=== PATIENT | male | born 1970 | race Caucasian/White ===

== ENCOUNTER 2021-07-01 03:16 | Inpatient (IN) | payer OTHER ==
[2021-07-01] MEDS ORDERED: Promethazine HCl 25 MG/ML VIAL IM PRN (03:22)
[2021-07-01] MEDS ORDERED: hydrALAZINE 20 MG/ML VIAL SLOW IVP PRN (03:22)
[2021-07-01] MEDS ORDERED: Ondansetron PF 4 MG/2 ML Vial IVP PRN (03:22)
[2021-07-01 03:32] VITALS: BMI 22.7
[2021-07-01] MEDS: Morphine 4 MG/ML VIAL SLOW IVP PRN ×2 (04:06→08:12)
[2021-07-01] MEDS: Dexamethasone 4 mg/ml Vial SLOW IVP SCH ×4 (04:15→21:53)
[2021-07-01] MEDS: Clindamycin/D5W 600 MG in Premix Bag 1 BAG IVPB SCH ×3 (04:15→21:52)
[2021-07-01 05:53] LABS: #Lymphocytes 1.2 thou/uL (1.20-3.40); #Monocytes 1.1 thou/uL (0.11-0.59); #Neutrophils 15.5 thou/uL (1.40-6.50); %Basophils 0.1 % (0.0-1.0); %Eosinophils 0.1 % (0.0-10.0); %Lymphocytes 6.9 % (21.0-51.0); %Monocytes 6.1 % (0.0-10.0); %Neutrophils 86.9 % (42.0-75.0); Hemoglobin 15.2 g/dL (14.0-18.0); Mean Corpuscular Volume 88.1 fL (78.0-98.0); Mean Platelet Volume 7.9 fL (7.4-10.4); Platelet Count 199 thou/uL (130-400); RBC Distribution Width 12.9 % (11.5-14.5); Red Blood Cell (RBC) Count 5.09 mill/uL (4.70-6.10); White Blood Cell (WBC) Count 17.8 thou/uL (4.8-10.8)
[2021-07-01 06:02] LABS: INR-International Normal Ratio 1.1; PTT 26.8 sec (22.9-36.1); Prothrombin Time 13.8 sec (12.0-14.7)
[2021-07-01 06:20] LABS: Anion Gap 16 mmol/L (10-20); BUN (Urea Nitrogen) 10 mg/dL (8.4-25.7); Calc. Creatinine Clearance 149 mL/min (70-130); Calcium 8.2 mg/dL (7.8-10.44); Carbon Dioxide 22 mmol/L (22-29); Chloride 100 mmol/L (98-107); Glucose 119 mg/dL (70-105); Potassium 3.8 mmol/L (3.5-5.1); Sodium 134 mmol/L (136-145)
[2021-07-01] MEDS: Famotidine/PF 20 mg/2ml Vial SLOW IVP SCH ×2 (08:06→21:53)
[2021-07-01] MEDS ORDERED: Acetaminophen 325 MG/10.15 ML UDCUP PO SCH (08:45)
[2021-07-01] MEDS: Acetaminophen 650 MG/20.3 ML UDCUP PO SCH ×2 (13:49→18:13)
[2021-07-01] MEDS: Sodium Chloride 0.9% 1,000 ML IV SCH (19:59)
[2021-07-02] MEDS: Acetaminophen 650 MG/20.3 ML UDCUP PO SCH ×4 (00:18→18:30)
[2021-07-02] MEDS: Sodium Chloride 0.9% 1,000 ML IV SCH ×3 (01:49→22:31)
[2021-07-02] MEDS: Clindamycin/D5W 600 MG in Premix Bag 1 BAG IVPB SCH ×3 (03:59→20:25)
[2021-07-02] MEDS: Famotidine/PF 20 mg/2ml Vial SLOW IVP SCH ×2 (09:10→22:31)
[2021-07-02] MEDS ORDERED: Clindamycin/D5W 600 mg/50 ml Premix Bag ONE (09:52)
[2021-07-02] MEDS ORDERED: AFRIN NASAL MIST 15 ML BOT ONE (09:52)
[2021-07-02 10:26] LABS: SARS-CoV-2 NAA Rapid Test Not Detected (NotDetected)
[2021-07-02] MEDS ORDERED: Midazolam HCl 2 mg/2 ml Vial ONE (10:44)
[2021-07-02] MEDS ORDERED: Fentanyl 250 MCG/5 ML VIAL ONE (10:44)
[2021-07-02] MEDS ORDERED: Lidocaine 2% Jelly 5 ML TUBE ONE ×2 (10:44→10:55)
[2021-07-02] MEDS ORDERED: Bupivacaine 0.25% 10 ML VIAL ONE (10:52)
[2021-07-02] MEDS ORDERED: EPINEPHrine 1 MG/ML AMP ONE (10:52)
[2021-07-02] MEDS ORDERED: Chlorhexidine Gluconate 15 ML UDCUP SSP ONE (10:52)
[2021-07-02] MEDS ORDERED: Lidocaine 1% (PF) 30 ML VIAL ONE (10:52)
[2021-07-02] MEDS ORDERED: Oxymetazoline HCl 0.05% (30 ML BOT) ONE (10:55)
[2021-07-02] MEDS ORDERED: Rocuronium Bromide 10 MG/ML (10ML VIAL) ONE (11:28)
[2021-07-02] MEDS ORDERED: Dexamethasone 20 MG/5 ML VIAL ONE (11:28)
[2021-07-02] MEDS ORDERED: Lidocaine 1% PF 5 ML VIAL ONE (11:28)
[2021-07-02] MEDS ORDERED: Ondansetron PF 4 MG/2 ML Vial ONE (11:28)
[2021-07-02] MEDS ORDERED: Glycopyrrolate 0.2 MG/ML 5 ML SYRINGE ONE (11:28)
[2021-07-02] MEDS ORDERED: PROPOFOL 200 MG/20 ML VIAL ONE (11:28)
[2021-07-02] MEDS ORDERED: PHENYLEPHRINE-NS 100 MCG/ML 10 ML SYRINGE ONE (11:28)
[2021-07-02] MEDS ORDERED: HYDROmorphone 2 MG/ML VIAL SLOW IVP PRN (15:14)
[2021-07-02] MEDS ORDERED: Promethazine HCl 25 MG/ML VIAL IVPB PRN (15:14)
[2021-07-02] MEDS ORDERED: Ondansetron HCl/PF 4 MG/2 ML Vial IVP PRN (15:14)
[2021-07-02] MEDS ORDERED: Meperidine HCl/PF 25 MG/ML VIAL SLOW IVP PRN (15:14)
[2021-07-02] MEDS ORDERED: Promethazine HCl 25 MG/ML VIAL IM PRN (15:14)
[2021-07-02] MEDS: Chlorhexidine Gluconate 15 ML UDCUP SSP SCH (22:31)
[2021-07-02] MEDS: Morphine 4 MG/ML VIAL SLOW IVP PRN (22:32)
[2021-07-03] MEDS: Acetaminophen 650 MG/20.3 ML UDCUP PO SCH ×3 (00:47→11:49)
[2021-07-03] MEDS: Clindamycin/D5W 600 MG in Premix Bag 1 BAG IVPB SCH ×2 (05:26→11:51)
[2021-07-03 06:02] LABS: Anion Gap 10 mmol/L (10-20); BUN (Urea Nitrogen) 10 mg/dL (8.4-25.7); Calc. Creatinine Clearance 161 mL/min (70-130); Calcium 8.5 mg/dL (7.8-10.44); Carbon Dioxide 28 mmol/L (22-29); Chloride 104 mmol/L (98-107); Glucose 92 mg/dL (70-105); Magnesium 1.7 mg/dL (1.6-2.6); Phosphorus 2.9 mg/dL (2.3-4.7); Potassium 3.8 mmol/L (3.5-5.1); Sodium 138 mmol/L (136-145)
[2021-07-03] MEDS: Famotidine/PF 20 mg/2ml Vial SLOW IVP SCH (10:35)
[2021-07-03] MEDS: Chlorhexidine Gluconate 15 ML UDCUP SSP SCH (10:36)
[2021-07-03 12:04] VITALS: BP 148/82; TEMP 98.1
== END 2021-07-03 14:07 | disposition home or self-care (01) | DRG 140 ==
LOC: SURG B 03:24
PROVIDERS: ADMIT Specialist; ATTEND Surgery
PROC: 0NSV04Z Reposition Left Mandible with Internal Fixation Device, Open Approach (ICD-10-PCS; principal; 2021-07-02)
PROC: 0NSR04Z Reposition Maxilla with Internal Fixation Device, Open Approach (ICD-10-PCS; 2021-07-02)
PROC: 0NSB04Z Reposition Nasal Bone with Internal Fixation Device, Open Approach (ICD-10-PCS; 2021-07-02)
DX: S02.412B LeFort II fracture, initial encounter for open fracture (principal); S06.6X0A Traumatic subarachnoid hemorrhage without loss of consciousness, initial encounter; S02.2XXB Fracture of nasal bones, initial encounter for open fracture; Z20.822 Contact with and (suspected) exposure to COVID-19; S02.66XB Fracture of symphysis of mandible, initial encounter for open fracture; S03.2XXA Dislocation of tooth, initial encounter; V27.0XXA Motorcycle driver injured in collision with fixed or stationary object in nontraffic accident, initial encounter; Z98.890 Other specified postprocedural states
CPT/HCPCS: 36415; 70450; 80048; 83735; 84100; C1713; C1776; J0171; J1100; J2001; J2250; J2270; J2405; J2704; J3010; J3490; J7030; J7050; S0020; S0028; U0002